=== PATIENT | female | born 1945 | race Caucasian/White ===

== ENCOUNTER 2018-11-17 09:33 | Emergency (ER) | payer MEDICARE, BC ==
[2018-11-17 09:59] VITALS: BP 149/97
--- NOTE | 2018-11-17 11:01 | UC ---
Lower Extremity/Ankle HPI - HPI Summary HPI Summary: 73-year-old female comes in with a chief complaint of left ankle pain. 4 days ago she tripped and fell in her house and had left lateral ankle pain ever since. She's been able to ambulate. Pain is worse with inversion of the left ankle and also ambulation. It's better with rest. No weakness or numbness. No groin of any foot or knee pain. - History of Current Complaint Chief Complaint: UCLowerExtremity Stated Complaint: LT ANKLE INJURY Time Seen by Provider: 11/17/18 10:26 Pain Intensity: 10 - Allergies/Home Medications Allergies/Adverse Reactions: Allergies Allergy/AdvReac Type Severity Reaction Status Date / Time codeine Allergy Vomiting Verified 11/17/18 10:00 peanut oil Allergy Nausea And Verified 11/17/18 10:00 Vomiting PMH/Surg Hx/FS Hx/Imm Hx Previously Healthy: Yes Endocrine History: Hypothyroidism GI/ History: Gastroesophageal Reflux - Surgical History Surgical History: Yes Surgery Procedure, Year, and Place: Appendectomy 1953. Carpal tunnel sx 2002 approx - Family History Known Family History: Positive: Non-Contributory - Social History Alcohol Use: Rare Substance Use Type: None Smoking Status (MU): Never Smoked Tobacco Review of Systems All Other Systems Reviewed And Are Negative: Yes Constitutional: Positive: Negative Skin: Positive: Negative Eyes: Positive: Negative ENT: Positive: Negative Respiratory: Positive: Negative Cardiovascular: Positive: Negative Gastrointestinal: Positive: Negative Motor: Positive: Negative Neurovascular: Positive: Negative Musculoskeletal: Positive: Other: - SEE HPI Neurological: Positive: Negative Psychological: Positive: Negative Is Patient Immunocompromised?: No Physical Exam Triage Information Reviewed: Yes Appearance: Well-Appearing, No Pain Distress, Well-Nourished Vital Signs: Initial Vital Signs Temp 98.0 F 11/17/18 09:54 Pulse 81 11/17/18 09:54 Resp 18 11/17/18 09:54 BP 149/97 11/17/18 09:54 Pulse Ox 99 11/17/18 09:54 Vital Signs Reviewed: Yes Eye Exam: Normal Eyes: Positive: Conjunctiva Clear Neck exam: Normal Neck: Positive: Supple Respiratory: Positive: No respiratory distress Musculoskeletal: Positive: Other: - LEFT ANKLE WITH LATERAL SWELLING. TENDER TO PALPATION DISTAL FIBULA. NL CAP REFILL, NL DP PULSE, NO SENSATION DEFICIT. Neurological Exam: Normal Neurological: Positive: Alert, Muscle Tone Normal Psychological: Positive: Age Appropriate Behavior Skin Exam: Normal Lower Extremity Course/Dx - Course Course Of Treatment: Patient Name: SUPA GALINDO Medical Record#: [id number] Ordering Physician: Thien Han MD Acct.#: [id number] : 1945 Age: 73 Sex: F Location: [facility] Exam Date: 11/17/181001 ADM Status: REG ER Order Information: ANKLE LEFT 3+VWS Accession Number: [id number] CPT: 95554 HISTORY: PAIN S/P TRAUMA . COMPARISONS: None relevant available at the time of dictation. VIEWS: 3, Frontal, lateral, and oblique views of the left ankle FINDINGS: BONE DENSITY: Normal. BONES: There is an oblique nondisplaced fracture of the distal fibular metaphysis. There are plantar calcaneal enthesophytes. 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 ALIGNMENT: There is no dislocation. The mortise is intact. SOFT TISSUES: Unremarkable. OTHER FINDINGS: None. IMPRESSION: OBLIQUE NONDISPLACED FRACTURE OF THE DISTAL FIBULA. <Electronically signed by Lorenzo Garcia MD in OV> 11/17/18 1030 I discussed the x-rays with the patient. Patient tells me she has crutches with her that she's been using as needed. Because she's been ambulating in the fracture is nondisplaced distal fibula patient was placed in a cam boot by nursing and neurovascularly intact after placement cam boot. Plan will be anti- inflammatories ice elevation and rest avoid any weightbearing and follow-up with orthopedics. - Differential Dx/Diagnosis Provider Diagnosis: Closed left ankle fracture Discharge - Sign-Out/Discharge Documenting (check all that apply): Patient Departure All imaging exams completed and their final reports reviewed: Yes - Discharge Plan Condition: Stable Disposition: HOME Patient Education Materials: Ankle Fracture (ED), Crutch Instructions (ED) Referrals: Jason Villasenor MD [Primary Care Provider] - Luigi Dillard MD [Medical Doctor] - Additional Instructions: FOLLOW UP WITH ORTHOPEDICS. GET RECHECKED SOONER IF YOUR CONDITION WORSENS OR ANY QUESTIONS OR CONCERNS. - Billing Disposition and Condition Condition: STABLE Disposition: Home
== END 2018-11-17 11:13 | disposition home or self-care (01) ==
LOC: UCEAST 09:33
DX: S82.892A Other fracture of left lower leg, initial encounter for closed fracture (principal); W01.0XXA Fall on same level from slipping, tripping and stumbling without subsequent striking against object, initial encounter; Y92.009 Unspecified place in unspecified non-institutional (private) residence as the place of occurrence of the external cause; Z88.5 Allergy status to narcotic agent
CPT/HCPCS: 99211; G0463